=== PATIENT | female | born 1985 | race African-American/Black ===

== ENCOUNTER 2020-02-05 16:39 | Emergency (ER) | payer MEDICAID ==
[~2020-02-05] VITALS: Ht 170.2 cm; Wt 59.0 kg
[2020-02-05 16:41] VITALS: BP 189/88
== END 2020-02-05 17:04 | disposition left against medical advice (07) ==
LOC: ER 16:39
DX: F19.10 Other psychoactive substance abuse, uncomplicated (principal); G93.40 Encephalopathy, unspecified; Z91.013 Allergy to seafood
CPT/HCPCS: 99283

== ENCOUNTER 2020-04-04 09:00 | Emergency (ER) | payer MEDICAID, OTHER ==
[~2020-04-04] VITALS: Ht 167.6 cm; Wt 53.0 kg
[2020-04-04 10:29] VITALS: BP 121/77
[2020-04-04] MEDS ORDERED: TRAMADOL 50MG TABLET PO ONE (10:30)
== END 2020-04-04 11:16 | disposition home or self-care (01) ==
LOC: ER 09:20
DX: S69.81XA Other specified injuries of right wrist, hand and finger(s), initial encounter (principal); Y04.0XXA Assault by unarmed brawl or fight, initial encounter; Y93.89 Activity, other specified; Y92.89 Other specified places as the place of occurrence of the external cause
CPT/HCPCS: 29130; 73130; 99283

== ENCOUNTER 2020-05-14 17:42 | Emergency (ER) | payer MEDICAID, OTHER ==
[~2020-05-14] VITALS: Ht 167.6 cm; Wt 55.0 kg
[2020-05-14] MEDS ORDERED: LIDOCAINE HCL/EPINEPHRINE 1%-EPI 1:100,000 20 ML VIAL INFIL SCH (19:43)
[2020-05-14] MEDS ORDERED: CEPHALEXIN 250MG CAPSULE PO ONE (19:45)
[2020-05-14] MEDS ORDERED: IBUPROFEN 600MG TABLET PO ONE (19:45)
[2020-05-14] MEDS ORDERED: TETANUS, DIPHTHERIA, PERTUSSIS VAC/PF 0.5ML (>7YR OLD) IM ONE (19:45)
[2020-05-14] MEDS ORDERED: BACITRACIN ZINC OINT UDPKT TOP ONE (19:45)
[2020-05-14] MEDS ORDERED: LIDOCAINE 1%/EPI 1:100,000 10 ML VIAL IJ ONE (19:45)
[2020-05-14 20:51] VITALS: BP 124/76
== END 2020-05-14 20:52 | disposition home or self-care (01) ==
LOC: ER 17:42
DX: S31.801A Laceration without foreign body of unspecified buttock, initial encounter (principal); Y04.2XXA Assault by strike against or bumped into by another person, initial encounter; Y07.59 Other non-family member, perpetrator of maltreatment and neglect; Y93.89 Activity, other specified; Y92.89 Other specified places as the place of occurrence of the external cause; R45.1 Restlessness and agitation
CPT/HCPCS: 12002; 90471; 90715; 99284; J3490

== ENCOUNTER 2020-05-19 14:48 | Emergency (ER) | payer MEDICAID ==
[~2020-05-19] VITALS: Ht 167.6 cm; Wt 52.0 kg
[2020-05-19 15:26] VITALS: BP 110/78
== END 2020-05-19 15:45 | disposition left against medical advice (07) ==
LOC: ER 14:48
DX: Z53.21 Procedure and treatment not carried out due to patient leaving prior to being seen by health care provider (principal)

== ENCOUNTER 2020-05-24 19:12 | Emergency (ER) | payer MEDICAID ==
[~2020-05-24] VITALS: Ht 162.6 cm; Wt 50.0 kg
[2020-05-24 20:19] LABS: BASOPHILS % 0.4 % (0.0-2.0); EOSINOPHILS % 0.2 % (0.0-5.0); HEMATOCRIT. 39.9 % (36.0-48.0); HEMOGLOBIN. 13.3 g/dL (12.0-16.0); LYMPHOCYTES % 22.4 % (20.0-50.0); MEAN CORPUSCULAR HEMOGLOBIN 32.7 pg (28.0-32.0); MEAN CORPUSCULAR VOLUME 98.1 fL (81.0-99.0); MEAN PLATELET VOLUME 7.6 fl (7.4-10.4); MONOCYTES % 8.3 % (2.0-8.0); NEUTROPHILS % 68.7 % (40.0-76.0); PLATELET 218 x1000/uL (130-400); RED BLOOD CELL COUNT 4.07 mill/uL (4.2-5.4); RED CELL DISTRIBUTION WIDTH 15.2 % (11.6-14.6)
[2020-05-24 20:25] LABS: CHLORIDE 110 mEq/L (98-107)
[2020-05-24] MEDS ORDERED: LORAZEPAM 2MG/ML CPJ IM PRN (20:30)
[2020-05-24] MEDS ORDERED: DIPHENHYDRAMINE 50MG/ML VIAL IM PRN (20:30)
[2020-05-24] MEDS ORDERED: HALOPERIDOL LACTATE 5MG/ML VIAL IM ONE (20:30)
[2020-05-24 20:31] LABS: ETHANOL BLOOD < 10 mg/dL
[2020-05-24 20:35] LABS: HCG SCREEN NEGATIVE
[2020-05-25 05:09] LABS: CLARITY URINE CLEAR (CLEAR); COLOR URINE YELLOW (YELLOW); KETONES URINE NEGATIVE (NEGATIVE); LEUKOCYTE ESTERASE URINE NEGATIVE (NEGATIVE); NITRITE URINE NEGATIVE (NEGATIVE); OCCULT BLOOD URINE NEGATIVE (NEGATIVE); PH URINE 5.5 (4.5-8.0); PROTEIN URINE NEGATIVE (NEGATIVE); SPECIFIC GRAVITY URINE 1.017 (1.005-1.030); UROBILINOGEN URINE 0.2 E.U./dL (0.2-1.0)
[2020-05-25 05:25] LABS: *AMPHETAMINES SCREEN URINE NEGATIVE (NEGATIVE); *BARBITURATES SCREEN URINE NEGATIVE (NEGATIVE); *COCAINE SCREEN URINE NEGATIVE (NEGATIVE); METHADONE URINE SCREEN NEGATIVE (NEGATIVE); OPIATES URINE SCREEN NEGATIVE (NEGATIVE)
[2020-05-25 05:26] LABS: CANNABINOID URINE SCREEN NEGATIVE (NEGATIVE); PHENCYCLIDINE URINE SCREEN NEGATIVE (NEGATIVE)
[2020-05-25 05:28] LABS: *BENZODIAZEPINES SCREEN URINE PRESUMTIVE POSITIVE (NEGATIVE)
[2020-05-25] MEDS ORDERED: OLANZAPINE 10MG TABLET PO SCH (09:00)
[2020-05-25 09:18] VITALS: BP 124/71
== END 2020-05-25 09:27 | disposition home or self-care (01) ==
LOC: ER 19:12
DX: F23 Brief psychotic disorder (principal); F31.89 Other bipolar disorder; R45.1 Restlessness and agitation; F15.129 Other stimulant abuse with intoxication, unspecified; F12.90 Cannabis use, unspecified, uncomplicated; Z78.1 Physical restraint status
CPT/HCPCS: 36415; 80053; 80305; 80320; 81003; 84703; 85025; 96372; 99284; J1200; J1630; J2060; G0480

== ENCOUNTER 2020-05-29 19:30 | Inpatient (IN) | payer MEDICAID ==
[~2020-05-29] VITALS: Ht 167.6 cm; Wt 49.9 kg
[2020-05-29] MEDS ORDERED: HALOPERIDOL LACTATE 5MG/ML VIAL IM STA (20:24)
[2020-05-29] MEDS ORDERED: SODIUM CHLORIDE 0.9% 1,000 ML IV ONE (20:24)
[2020-05-29] MEDS ORDERED: LORAZEPAM 2MG/ML CPJ IV STA (20:24)
[2020-05-29 21:22] LABS: BASOPHILS % 0.1 % (0.0-2.0); EOSINOPHILS % 0.3 % (0.0-5.0); HEMATOCRIT. 35.5 % (36.0-48.0); HEMOGLOBIN. 11.9 g/dL (12.0-16.0); LYMPHOCYTES % 9.8 % (20.0-50.0); MEAN CORPUSCULAR HEMOGLOBIN 32.8 pg (28.0-32.0); MEAN PLATELET VOLUME 7.4 fl (7.4-10.4); MONOCYTES % 7.4 % (2.0-8.0); NEUTROPHILS % 82.4 % (40.0-76.0); PLATELET 205 x1000/uL (130-400); RED BLOOD CELL COUNT 3.62 mill/uL (4.2-5.4); RED CELL DISTRIBUTION WIDTH 15.5 % (11.6-14.6)
[2020-05-29 21:28] LABS: CHLORIDE 110 mEq/L (98-107)
[2020-05-29 21:34] LABS: ETHANOL BLOOD < 10 mg/dL
[2020-05-29 21:44] LABS: CLARITY URINE CLEAR (CLEAR); COLOR URINE YELLOW (YELLOW); KETONES URINE TRACE (NEGATIVE); LEUKOCYTE ESTERASE URINE NEGATIVE (NEGATIVE); NITRITE URINE NEGATIVE (NEGATIVE); OCCULT BLOOD URINE NEGATIVE (NEGATIVE); PROTEIN URINE 1+ (NEGATIVE); UROBILINOGEN URINE 0.2 E.U./dL (0.2-1.0)
[2020-05-29 22:09] LABS: *BARBITURATES SCREEN URINE NEGATIVE (NEGATIVE); *COCAINE SCREEN URINE NEGATIVE (NEGATIVE); METHADONE URINE SCREEN NEGATIVE (NEGATIVE)
[2020-05-29 22:10] LABS: CANNABINOID URINE SCREEN NEGATIVE (NEGATIVE); OPIATES URINE SCREEN NEGATIVE (NEGATIVE); PHENCYCLIDINE URINE SCREEN NEGATIVE (NEGATIVE)
[2020-05-29 22:11] LABS: *AMPHETAMINES SCREEN URINE PRESUMTIVE POSITIVE (NEGATIVE); *BENZODIAZEPINES SCREEN URINE PRESUMTIVE POSITIVE (NEGATIVE)
[2020-05-30 03:30] VITALS: BP 117/70
[2020-05-30 04:00] VITALS: BP 117/70
[2020-05-30] MEDS ORDERED: QUET200T PO (05:48)
[2020-05-30] MEDS ORDERED: LORAZEPAM 2MG/ML CPJ IV PRN (06:00)
[2020-05-30] MEDS ORDERED: ACETAMINOPHEN 325MG TABLET PO PRN (06:00)
[2020-05-30] MEDS ORDERED: ONDANSETRON HCL 4MG/2ML INJ IV PRN (06:00)
[2020-05-30] MEDS ORDERED: OMEPRAZOLE 20MG CAPSULE EXTENDED RELEASE PO SCH (07:10)
[2020-05-30 08:00] VITALS: BP 128/84
[2020-05-30] MEDS ORDERED: MEDICATION NOT ON FORMULARY EA (Quetiapine Fumarate (Seroquel) 200 MG) PO SCH (09:00)
[2020-05-30] MEDS ORDERED: QUETIAPINE FUMARATE 50MG TABLET PO SCH (09:00)
== END 2020-05-30 09:45 | disposition left against medical advice (07) | DRG 53 ==
LOC: ER 19:30 → 8WST 05-30 01:38 → ENRESERV 05-30 02:49
PROVIDERS: ADMIT Internal Medicine; ATTEND Internal Medicine
DX: R56.9 Unspecified convulsions (principal); F17.200 Nicotine dependence, unspecified, uncomplicated; F23 Brief psychotic disorder; Z53.29 Procedure and treatment not carried out because of patient's decision for other reasons; F31.9 Bipolar disorder, unspecified; Z91.013 Allergy to seafood; Z79.899 Other long term (current) drug therapy; E87.8 Other disorders of electrolyte and fluid balance, not elsewhere classified; G93.41 Metabolic encephalopathy; F15.90 Other stimulant use, unspecified, uncomplicated; E44.0 Moderate protein-calorie malnutrition
CPT/HCPCS: 36415; 80053; 80305; 80307; 80320; 80329; 81003; 85025; 93005; 99285; J1630; J2060; J7030; G0480

== ENCOUNTER 2020-09-03 11:47 | Emergency (ER) | payer MEDICAID ==
[~2020-09-03] VITALS: Ht 167.6 cm; Wt 61.0 kg
[~2020-09-03 11:47] MED LIST: QUET200T PO
[2020-09-03] MEDS ORDERED: ONDANSETRON HCL 4MG/2ML INJ IV STA (12:17)
[2020-09-03] MEDS ORDERED: KETOROLAC 30MG/ML VIAL IV STA (12:17)
[2020-09-03] MEDS ORDERED: SODIUM CHLORIDE 0.9% 1,000 ML IV ONE (12:30)
[2020-09-03 13:40] LABS: BASOPHILS % 0.6 % (0.0-2.0); HEMATOCRIT. 51.2 % (36.0-48.0); HEMOGLOBIN. 17.3 g/dL (12.0-16.0); LYMPHOCYTES % 15.2 % (20.0-50.0); MEAN CORPUSCULAR HEMOGLOBIN 32.3 pg (28.0-32.0); MEAN CORPUSCULAR VOLUME 95.4 fL (81.0-99.0); MEAN PLATELET VOLUME 8.6 fl (7.4-10.4); MONOCYTES % 9.3 % (2.0-8.0); NEUTROPHILS % 74.9 % (40.0-76.0); PLATELET 275 x1000/uL (130-400); RED BLOOD CELL COUNT 5.37 mill/uL (4.2-5.4); RED CELL DISTRIBUTION WIDTH 14.7 % (11.6-14.6)
[2020-09-03 13:41] LABS: CLARITY URINE CLOUDY (CLEAR); COLOR URINE DARK YELLOW (YELLOW); KETONES URINE NEGATIVE (NEGATIVE); LEUKOCYTE ESTERASE URINE NEGATIVE (NEGATIVE); NITRITE URINE NEGATIVE (NEGATIVE); OCCULT BLOOD URINE NEGATIVE (NEGATIVE); PH URINE 5.5 (4.5-8.0); PROTEIN URINE 2+ (NEGATIVE); SPECIFIC GRAVITY URINE 1.024 (1.005-1.030)
[2020-09-03 13:50] LABS: CHLORIDE 98 mEq/L (98-107)
[2020-09-03 13:56] LABS: ETHANOL BLOOD < 10 mg/dL
[2020-09-03 14:20] LABS: HCG SCREEN INDETERMINATE
[2020-09-03] MEDS ORDERED: CEFTRIAXONE 1 G PREMIX 50 ML IV ONE (14:30)
[2020-09-03 14:45] LABS: *BARBITURATES SCREEN URINE NEGATIVE (NEGATIVE); *BENZODIAZEPINES SCREEN URINE NEGATIVE (NEGATIVE)
[2020-09-03 14:46] LABS: *COCAINE SCREEN URINE NEGATIVE (NEGATIVE); METHADONE URINE SCREEN NEGATIVE (NEGATIVE)
[2020-09-03 14:48] LABS: OPIATES URINE SCREEN NEGATIVE (NEGATIVE); PHENCYCLIDINE URINE SCREEN NEGATIVE (NEGATIVE)
[2020-09-03 14:49] LABS: *AMPHETAMINES SCREEN URINE PRESUMTIVE POSITIVE (NEGATIVE); CANNABINOID URINE SCREEN PRESUMTIVE POSITIVE (NEGATIVE)
[2020-09-03] MEDS ORDERED: IOHEXOL-300 100 ML BOTTLE ONE (15:17)
[2020-09-03 15:51] VITALS: BP 108/72
[2020-09-03] MEDS ORDERED: POTASSIUM CHLORIDE 20MEQ TABLET SR PO ONE (16:15)
== END 2020-09-03 16:22 | disposition home or self-care (01) ==
LOC: ER 11:47
DX: N39.0 Urinary tract infection, site not specified (principal); R03.0 Elevated blood-pressure reading, without diagnosis of hypertension; F31.9 Bipolar disorder, unspecified
CPT/HCPCS: 36415; 71045; 74177; 80053; 80305; 80320; 81003; 81025; 82962; 83690; 84702; 84703; 85025; 93005; 96361; 96365; 96375; 99285; J0696; J1885; J2405; J7030; Q9967; G0480

== ENCOUNTER 2022-02-26 10:48 | Emergency (ER) | payer MEDICAID, OTHER ==
[~2022-02-26] VITALS: Ht 167.6 cm; Wt 59.0 kg
[2022-02-26 12:45] VITALS: BP 123/78
[2022-02-26] MEDS ORDERED: ERYT1OIN6 LEFTEYE ×3 (13:04→13:11)
== END 2022-02-26 13:36 | disposition home or self-care (01) ==
LOC: ER 12:19
DX: H00.012 Hordeolum externum right lower eyelid (principal)
CPT/HCPCS: 99281

== ENCOUNTER 2022-08-27 00:32 | Emergency (ER) | payer OTHER ==
[~2022-08-27] VITALS: Ht 167.6 cm; Wt 52.0 kg
[~2022-08-27 00:32] MED LIST changes: +ERYT1OIN6 LEFTEYE
[2022-08-27 01:15] VITALS: BP 112/78
[2022-08-27] MEDS ORDERED: HYDROCODONE/ACETAMINOPHEN 5/325MG TABLET PO ONE (02:45)
[2022-08-27] MEDS ORDERED: LIDO1ADH23 TP (04:51)
[2022-08-27] MEDS ORDERED: HYDR-4001 MT (04:51)
== END 2022-08-27 05:12 | disposition home or self-care (01) ==
LOC: ER 00:32
DX: S20.212A Contusion of left front wall of thorax, initial encounter (principal); M79.672 Pain in left foot; M25.512 Pain in left shoulder; V49.49XA Driver injured in collision with other motor vehicles in traffic accident, initial encounter; Y93.89 Activity, other specified; Y92.488 Other paved roadways as the place of occurrence of the external cause
CPT/HCPCS: 29515; 71045; 73030; 73630; 99284

== ENCOUNTER 2025-01-08 23:21 | Emergency (ER) | payer OTHER ==
[~2025-01-08] VITALS: Ht 167.6 cm; Wt 54.4 kg
[~2025-01-08 23:21] MED LIST changes: +HYDR-4001 MT; +LIDO1ADH23 TP
[2025-01-08 23:29] VITALS: TEMP 36.7
[2025-01-08] MEDS ORDERED: CEFTRIAXONE 2,000 MG in DEXT 5% WATER 100 ML IV SCH (23:45)
[2025-01-09] MEDS: KETOROLAC 30MG/ML VIAL IV ONE (00:01)
[2025-01-09] MEDS: TETANUS, DIPHTHERIA, PERTUSSIS VAC/PF 0.5ML (>10YR OLD) IM ONE (00:02)
[2025-01-09] MEDS: CEFEPIME 2GM/50ML DUPLEX 50 ML IV NR (00:54)
[2025-01-09] MEDS: BACITRACIN ZINC OINT UDPKT TOP ONE (01:44)
[2025-01-09] MEDS: LIDOCAINE HCL/PF 1% 10 MG/ML 5ML VIAL INFIL ONE (01:44)
[2025-01-09 01:45] VITALS: BP 102/65; PULSE 74; RESP 16; O2SAT 98
[2025-01-09] MEDS ORDERED: CEPH500C2 MT (02:56)
[2025-01-09] MEDS ORDERED: HYDR-4001 MT (02:56)
[2025-01-09] MEDS ORDERED: BO1 TP (11:43)
[2025-01-10] MEDS ORDERED: HYDR-4001 MT (14:56)
== END 2025-01-09 03:10 | disposition home or self-care (01) ==
LOC: ER 23:21
DX: S61.217A Laceration without foreign body of left little finger without damage to nail, initial encounter (principal); F31.9 Bipolar disorder, unspecified; Z79.899 Other long term (current) drug therapy; W34.00XA Accidental discharge from unspecified firearms or gun, initial encounter; Y93.89 Activity, other specified; Y92.89 Other specified places as the place of occurrence of the external cause; Y99.8 Other external cause status
CPT/HCPCS: 90715; 12001; 99284; 73140; 90471; 96365; 96375; J1885; J2003; Z7610 ×5; J0692

== ENCOUNTER 2025-01-09 10:48 | Emergency (ER) | payer MEDICAID, OTHER ==
[~2025-01-09] VITALS: Ht 160 cm; Wt 54.4 kg
[~2025-01-09 10:48] MED LIST changes: +CEPH500C2 MT
[2025-01-09 10:58] VITALS: O2SAT 100
[2025-01-09 11:06] VITALS: BP 146/90; PULSE 96; RESP 16; TEMP 36.9; O2SAT 99
[2025-01-09] MEDS ORDERED: BO1 TP (11:43)
[2025-01-10] MEDS ORDERED: HYDR-4001 MT (14:56)
== END 2025-01-09 11:49 | disposition home or self-care (01) ==
LOC: ER 11:39
DX: S61.217D Laceration without foreign body of left little finger without damage to nail, subsequent encounter (principal); Z79.899 Other long term (current) drug therapy; F31.9 Bipolar disorder, unspecified; X58.XXXD Exposure to other specified factors, subsequent encounter
CPT/HCPCS: 99282

== ENCOUNTER 2025-01-10 12:27 | Emergency (ER) | payer MEDICAID ==
[~2025-01-10] VITALS: Ht 167.6 cm; Wt 54.4 kg
[~2025-01-10 12:27] MED LIST changes: +BO1 TP
[2025-01-10 12:43] VITALS: BP 110/74; TEMP 36.9; O2SAT 100
[2025-01-10 12:44] VITALS: PULSE 95; RESP 18; O2SAT 99
[2025-01-10] MEDS ORDERED: HYDR-4001 MT (14:56)
[2025-01-10] MEDS ORDERED: BACITRACIN ZINC OINT UDPKT TOP ONE (15:00)
== END 2025-01-10 15:40 | disposition home or self-care (01) ==
LOC: ER 12:51
DX: S68.117A Complete traumatic metacarpophalangeal amputation of left little finger, initial encounter (principal); F17.210 Nicotine dependence, cigarettes, uncomplicated; Z79.899 Other long term (current) drug therapy; Z91.013 Allergy to seafood; X58.XXXA Exposure to other specified factors, initial encounter; Y93.89 Activity, other specified; Y92.89 Other specified places as the place of occurrence of the external cause; Y99.8 Other external cause status
CPT/HCPCS: 99283

== ENCOUNTER 2025-01-11 12:00 | Emergency (ER) | payer MEDICAID ==
[~2025-01-11] VITALS: Ht 167.6 cm; Wt 54.0 kg
[2025-01-11 12:04] VITALS: BP 100/65; PULSE 91; RESP 16; TEMP 36.7; O2SAT 98
[2025-01-11 12:07] VITALS: O2SAT 100
== END 2025-01-11 14:17 | disposition home or self-care (01) ==
LOC: ER 12:00
DX: S61.402A Unspecified open wound of left hand, initial encounter (principal); I10 Essential (primary) hypertension; Z79.899 Other long term (current) drug therapy; W34.00XS Accidental discharge from unspecified firearms or gun, sequela; Y93.89 Activity, other specified; Y92.89 Other specified places as the place of occurrence of the external cause; Y99.8 Other external cause status
CPT/HCPCS: 99281

== ENCOUNTER 2025-01-15 10:06 | Emergency (ER) | payer MEDICAID, OTHER ==
[2025-01-15 10:12] VITALS: O2SAT 98
[2025-01-15] MEDS ORDERED: IBUP-2029 MT (10:52)
[2025-01-15 10:57] VITALS: PULSE 82
[2025-01-15] MEDS: BACITRACIN ZINC OINT UDPKT TOP ONE (10:57)
[2025-01-15] MEDS: IBUPROFEN 600MG TABLET PO ONE (10:57)
== END 2025-01-15 11:03 | disposition home or self-care (01) ==
LOC: ER 10:06
DX: S61.217D Laceration without foreign body of left little finger without damage to nail, subsequent encounter (principal); Z48.00 Encounter for change or removal of nonsurgical wound dressing; Z79.899 Other long term (current) drug therapy; W34.00XA Accidental discharge from unspecified firearms or gun, initial encounter; Y93.89 Activity, other specified; Y92.89 Other specified places as the place of occurrence of the external cause; Y99.8 Other external cause status
CPT/HCPCS: 99282

== ENCOUNTER 2025-01-17 11:20 | Emergency (ER) | payer OTHER ==
[~2025-01-17] VITALS: Ht 167.6 cm; Wt 54.0 kg
[~2025-01-17 11:20] MED LIST changes: +IBUP-2029 MT
[2025-01-17 11:47] VITALS: O2SAT 100
[2025-01-17 11:49] VITALS: BP 119/84; PULSE 72; RESP 18; TEMP 37.1; O2SAT 98
== END 2025-01-17 12:32 | disposition home or self-care (01) ==
LOC: ER 11:20
DX: S68.127A Partial traumatic metacarpophalangeal amputation of left little finger, initial encounter (principal); Z48.00 Encounter for change or removal of nonsurgical wound dressing; Z79.899 Other long term (current) drug therapy; X58.XXXA Exposure to other specified factors, initial encounter; Y93.89 Activity, other specified; Y92.89 Other specified places as the place of occurrence of the external cause; Y99.8 Other external cause status
CPT/HCPCS: 99281

== ENCOUNTER 2025-01-20 11:27 | Emergency (ER) | payer OTHER ==
[~2025-01-20] VITALS: Ht 167.6 cm; Wt 52.0 kg
[2025-01-20 11:32] VITALS: PULSE 86; RESP 18; O2SAT 98
[2025-01-20 11:41] VITALS: BP 98/65; TEMP 36.4; O2SAT 99
[2025-01-20] MEDS ORDERED: AMOX1TAB16 MT (12:55)
== END 2025-01-20 13:00 | disposition home or self-care (01) ==
LOC: ER 11:27
DX: S61.217D Laceration without foreign body of left little finger without damage to nail, subsequent encounter (principal); Z79.899 Other long term (current) drug therapy; X58.XXXD Exposure to other specified factors, subsequent encounter
CPT/HCPCS: 99283; Z7610 ×2

== ENCOUNTER 2025-03-14 11:20 | Emergency (ER) | payer OTHER ==
[~2025-03-14] VITALS: Ht 167.6 cm; Wt 50.0 kg
[~2025-03-14 11:20] MED LIST changes: +AMOX1TAB16 MT
[2025-03-14 11:56] VITALS: O2SAT 99
[2025-03-14] MEDS ORDERED: CEPH500C2 MT (12:29)
[2025-03-14 12:48] VITALS: BP 115/76; PULSE 60; RESP 18; TEMP 36.8; O2SAT 98
== END 2025-03-14 12:49 | disposition home or self-care (01) ==
LOC: ER 11:48
DX: K08.89 Other specified disorders of teeth and supporting structures (principal); Z79.899 Other long term (current) drug therapy
CPT/HCPCS: 99283

== ENCOUNTER 2025-06-06 06:36 | Emergency (ER) | payer OTHER ==
[~2025-06-06] VITALS: Ht 167.6 cm; Wt 49.5 kg
[2025-06-06] MEDS: SODIUM CHLORIDE 0.9% (SEPSIS BOLUS) IV ONE (07:30)
[2025-06-06 07:49] LABS: BASOPHILS % 0.3 % (0.0-2.0); EOSINOPHILS % 0.5 % (0.0-5.0); HEMATOCRIT. 36.4 % (36.0-48.0); HEMOGLOBIN. 12.3 g/dL (12.0-16.0); LYMPHOCYTES % 9.0 % (20.0-50.0); MEAN PLATELET VOLUME 8.2 fl (7.4-10.4); MONOCYTES % 8.0 % (2.0-8.0); NEUTROPHILS % 82.2 % (40.0-76.0); PLATELET 253 x1000/uL (130-400); RED BLOOD CELL COUNT 3.83 mill/uL (4.2-5.4); RED CELL DISTRIBUTION WIDTH 13.6 % (11.6-14.6)
[2025-06-06] MEDS: DOXYCYCLINE 100MG/100ML 100 ML IV SCH (07:52)
[2025-06-06 07:57] LABS: HCG SCREEN NEGATIVE
[2025-06-06 07:58] LABS: CREATININE 0.6 mg/dL (0.6-1.0); UREA NITROGEN BLOOD 12 mg/dL (9-23)
[2025-06-06 08:00] LABS: ASPARTATE AMINOTRANSFERASE 17 IU/L (<34); BILIRUBIN DIRECT < 0.1 mg/dL (<=3.0); BILIRUBIN TOTAL 0.3 mg/dL (0.1-1.0); PROTEIN TOTAL 7.3 g/dL (6.0-8.3)
[2025-06-06 08:17] LABS: INR 1.0
[2025-06-06] MEDS: KCL 20MEQ/100ML PREMIX 100 ML IV ONE (08:37)
[2025-06-06] MEDS: ACETAMINOPHEN 325MG TABLET PO ONE (08:54)
[2025-06-06] MEDS: IBUPROFEN 800MG TABLET PO ONE (08:54)
[2025-06-06 09:51] LABS: CLARITY URINE CLEAR (CLEAR); COLOR URINE YELLOW (YELLOW); GLUCOSE URINE NEGATIVE (NEGATIVE); KETONES URINE TRACE (NEGATIVE); LEUKOCYTE ESTERASE URINE 1+ (NEGATIVE); NITRITE URINE POSITIVE (NEGATIVE); OCCULT BLOOD URINE NEGATIVE (NEGATIVE); PH URINE 6.5 (4.5-8.0); PROTEIN URINE 1+ (NEGATIVE); SPECIFIC GRAVITY URINE 1.013 (1.005-1.030); UROBILINOGEN URINE 1.0 E.U./dL (0.2-1.0)
[2025-06-06 10:01] LABS: RBC URINE 0-2 /hpf (0-2); WBC URINE 15-25 /hpf (0-2)
[2025-06-06 10:02] LABS: BACTERIA URINE 3+; SQUAMOUS EPITHELIAL CELL URINE RARE /lpf (RARE/1+); YEAST URINE NONE SEEN
[2025-06-06 10:24] LABS: *AMPHETAMINES SCREEN URINE PRESUMPTIVE POSITIVE (NEGATIVE); *BARBITURATES SCREEN URINE NEGATIVE (NEGATIVE); *BENZODIAZEPINES SCREEN URINE NEGATIVE (NEGATIVE); *COCAINE SCREEN URINE NEGATIVE (NEGATIVE); CANNABINOID URINE SCREEN PRESUMPTIVE POSITIVE (NEGATIVE); METHADONE URINE SCREEN NEGATIVE (NEGATIVE); OPIATES URINE SCREEN NEGATIVE (NEGATIVE); PHENCYCLIDINE URINE SCREEN NEGATIVE (NEGATIVE)
[2025-06-06 10:47] LABS: ECSTASY MDMA SCREEN URINE NEGATIVE (NEGATIVE)
[2025-06-06] MEDS ORDERED: IBUP-1523 MT (11:10)
[2025-06-06] MEDS ORDERED: HYDR50TA55 MT (11:10)
[2025-06-06] MEDS ORDERED: TOPUD MT (11:10)
[2025-06-06] MEDS ORDERED: DOXY100C5 MT (11:10)
[2025-06-06] MEDS ORDERED: POTA-205 MT (11:11)
[2025-06-06 11:23] VITALS: BP 126/73; PULSE 102; RESP 22; TEMP 37.4; O2SAT 100
== END 2025-06-06 11:29 | disposition home or self-care (01) ==
LOC: ER 06:36 → CMPBEDREQ 12:24
DX: N39.0 Urinary tract infection, site not specified (principal); E87.6 Hypokalemia; R50.9 Fever, unspecified; F15.10 Other stimulant abuse, uncomplicated; F17.200 Nicotine dependence, unspecified, uncomplicated; Z79.899 Other long term (current) drug therapy
CPT/HCPCS: 99285; 96365; 71045; 80076; 80305; 80048; 84703; 83605; 85025; 85610; 87040; 87086; 87186; 87077; 36415; 84145; 93005; 96368; 81003; J3490; J3480; J7030

== ENCOUNTER 2025-09-10 18:08 | Emergency (ER) | payer OTHER ==
[~2025-09-10] VITALS: Ht 167.6 cm; Wt 60.0 kg
[~2025-09-10 18:08] MED LIST changes: +DOXY100C5 MT; +HYDR50TA55 MT; +IBUP-1455 MT; +IBUP-1523 MT; -IBUP-2029 MT; +POTA-205 MT; +TOPUD MT
[2025-09-10 18:14] VITALS: O2SAT 99
[2025-09-10] MEDS ORDERED: AMOX1TAB16 MT (18:33)
[2025-09-10 18:59] VITALS: BP 135/108; PULSE 97; RESP 16; TEMP 37.2; O2SAT 98
== END 2025-09-10 18:58 | disposition home or self-care (01) ==
LOC: ER 18:08
DX: K04.7 Periapical abscess without sinus (principal); Z79.899 Other long term (current) drug therapy; Z91.013 Allergy to seafood
CPT/HCPCS: 99283

== ENCOUNTER 2025-10-13 17:45 | Emergency (ER) | payer OTHER ==
[~2025-10-13] VITALS: Ht 170.2 cm; Wt 53.0 kg
[2025-10-13 17:46] VITALS: O2SAT 95
[2025-10-13 17:52] VITALS: TEMP 36.7; O2SAT 99
[2025-10-13 22:29] VITALS: BP 114/74; PULSE 97; RESP 16
[2025-10-13] MEDS: IBUPROFEN 600MG TABLET PO ONE (22:29)
[2025-10-13] MEDS: TETANUS, DIPHTHERIA, PERTUSSIS VAC/PF 0.5ML (>10YR OLD) IM ONE (22:36)
[2025-10-13] MEDS: BACITRACIN ZINC OINT UDPKT TOP ONE (22:36)
[2025-10-13] MEDS: LIDOCAINE HCL/EPINEPHRINE 1%-EPI 1:100,000 20ML VIAL INFIL ONE (22:36)
[2025-10-13] MEDS ORDERED: IBUP-2030 MT (22:53)
[2025-10-13] MEDS ORDERED: BO1 TP (22:53)
[2025-10-13] MEDS ORDERED: CEPH500T MT (22:53)
== END 2025-10-13 23:04 | disposition home or self-care (01) ==
LOC: ER 17:45
DX: S61.412A Laceration without foreign body of left hand, initial encounter (principal); Z91.013 Allergy to seafood; Z79.899 Other long term (current) drug therapy; W26.8XXA Contact with other sharp object(s), not elsewhere classified, initial encounter; Y93.89 Activity, other specified; Y92.89 Other specified places as the place of occurrence of the external cause; Y99.8 Other external cause status
CPT/HCPCS: 73130; 90715; 12002; 90471; 99283; J2004; Z7610

== ENCOUNTER 2025-10-23 16:15 | Emergency (ER) | payer OTHER ==
[~2025-10-23] VITALS: Ht 167.6 cm; Wt 54.0 kg
[~2025-10-23 16:15] MED LIST changes: +CEPH500T MT; +IBUP-2030 MT
[2025-10-23 16:29] VITALS: O2SAT 99
[2025-10-23 18:30] VITALS: BP 108/59; PULSE 70; RESP 18; TEMP 36.7; O2SAT 99
== END 2025-10-23 18:28 | disposition home or self-care (01) ==
LOC: ER 16:15
DX: S61.411D Laceration without foreign body of right hand, subsequent encounter (principal); Z79.899 Other long term (current) drug therapy; Z91.013 Allergy to seafood; X58.XXXD Exposure to other specified factors, subsequent encounter
CPT/HCPCS: 99282; Z7610 ×2